=== PATIENT | male | born 1990 | race African-American/Black ===

== ENCOUNTER → 2025-01-05 12:24 | Outpatient (CLI) | payer OTHER, SELFPAY ==
[2025-01-05 13:46] LABS: Influenza A - CEPHEID Flu A NEGATIVE (NEGATIVE); Influenza B - CEPHEID Flu B NEGATIVE (NEGATIVE); Respiratory Syncytial Virus Negative (Negative)
[2025-01-05 13:47] LABS: COVID-19 CEPHEID 4-PLEX PCR Negative (Negative)
== END ==
PROVIDERS: Visit Provider Nurse Practitioner Family
DX: R11.2 Nausea with vomiting, unspecified (principal)
CPT/HCPCS: 0241U